=== PATIENT | male | born 1970 | race Two or more races ===

== ENCOUNTER 2024-09-03 07:08 | Inpatient (IN) | payer OTHER ==
[~2024-09-03] VITALS: Ht 182.9 cm; Wt 97.5 kg
[2024-09-03] MEDS ORDERED: LIPITOR40 M1 PO (07:39)
[2024-09-03] MEDS ORDERED: ADCIRCA20 MG PO (07:40)
[2024-09-03] MEDS ORDERED: TESTIM5 GM TD (07:40)
--- NOTE | 2024-09-03 07:44 | NUR ---
SE RECIBE PTE ALERTA Y ORIENTADO X3. PTE REFIERE DOLOR ABDOMINAL HACE 12 BARILLAS. SE OBSERVA AREA ABDOMINAL RIGIDA AL PALPAR. SE MIDEN S/V Y SE UBICA.
[2024-09-03] MEDS ORDERED: FAMOTIDINE/PF 20 MG/2 ML VIAL ONE ×2 (08:42→19:31)
[2024-09-03] MEDS ORDERED: FAMOtidine 10 MG/ML (4ML VIAL) IV ONE (08:45)
[2024-09-03 09:16] LABS: HEMATOCRIT 48.9 % (39.0-48.0); HEMOGLOBIN 16.7 g/dL (13-16.00); MEAN CELL VOLUME 87.2 fL (80.0-100.00); MEAN CORPUSCULAR HEMOGLOBIN 29.7 pg (27.00-32.0); MEAN CORPUSCULAR HGB CONC 34.1 g/dl (32.0-36.0); PLATELET COUNT 202 K/uL (150-450); RED BLOOD COUNT 5.61 M/uL (4.00-6.00); RED CELL DISTRIBUTION WIDTH 13.7 % (11.5-14.5)
--- NOTE | 2024-09-03 09:24 | NUR ---
PACIENTE ALERTA Y ORIENTADO X3, ES ORIENTADO SOBRE TRATAMIENTO MEDICO. VERBALIZA ENTENDER Y ACEPTAR. PACIENTE SE REALIZARON EXTRACCION DE MUESTRAS BAJO MEDIDAS ASEPTICAS. SE REALIZA PUNCION CON HERAPIN LOCK. PACIENTE PENDIENTE A CT CON CONTRASTE,NOTIFICADO AL PERSONAL DE TURNO.
[2024-09-03 10:01] LABS: BILIRUBIN TOTAL 1.19 mg/dL (0.3-1.2); CALCIUM 9.5 mg/dL (8.5-10.1); CREATININE SERUM 1.3 mg/dL (0.70-1.30); GFR 57.1; GLOBULINA 4.2 G/DL (2.4-3.5); POTASSIUM 4.03 mEq/L (3.5-5.1); TOTAL PROTEIN 8.2 gm/dL (6.4-8.2)
--- NOTE | 2024-09-03 15:21 | NUR ---
PTE ALERTA Y ORIENTADA X 3 ESFERAS SIN FAMILIAR AL MOMENTO DE LA RIRI.EN JASON CON BARANDAS ELEVADAS.AREA DE VENOPUNCION PATENTE Y HAO DE EDEMA.PENDIENTE A EVALUACION DE DR BERGER.
[2024-09-03] MEDS ORDERED: ACETAMINOPHEN 500 MG GEL..CAP PO PRN (19:00)
[2024-09-03] MEDS ORDERED: 0.9 % SODIUM CHLORIDE 1,000 ML IV SCH (19:00)
[2024-09-03] MEDS ORDERED: ONDANSETRON HCL 4 MG in 0.9 % SODIUM CHLORIDE 50 ML IV PRN (19:00)
[2024-09-03] MEDS ORDERED: PIPERACILLIN/TAZOBACTAM SODIUM 3.375 GM in DEXTROSE 5 % IN WATER 100 ML IV SCH (19:00)
[2024-09-03] MEDS ORDERED: MORPHINE SULFATE 2 MG/ML CARTRIDGE IV PRN (19:15)
[2024-09-03] MEDS ORDERED: KETOROLAC TROMETHAMINE 15 MG VIAL IU ONE (19:15)
[2024-09-03] MEDS ORDERED: KETOROLAC TROMETHAMINE 30 MG VIAL ONE (19:30)
[2024-09-03] MEDS ORDERED: PIPERACILLIN/TAZOBACTAM SODIUM 3.375 GM VIAL IV ONE (19:30)
[2024-09-03 20:24] VITALS: BP 165/90
[2024-09-03 20:31] LABS: INR 1.05; PARTIAL THROMBOPLASTIN TIME 29.9 SECONDS (22.0-34.0); PROTHROMBIN TIME 11.4 SECONDS (9.0-11.5)
[2024-09-03] MEDS ORDERED: FAMOTIDINE/PF 20 MG in 0.9 % SODIUM CHLORIDE 8 ML IV PUSH SCH (21:00)
[2024-09-04 00:51] VITALS: BP 104/56
[2024-09-04 09:00] VITALS: BP 98/52; O2SAT 98
[2024-09-04] MEDS ORDERED: ENOXAPARIN SODIUM 40 MG/0.4 ML SYRINGE SUBCUTANEO SCH (09:00)
[2024-09-04] MEDS ORDERED: FAMOTIDINE/PF 20 MG/2 ML VIAL ONE (10:39)
[2024-09-04] MEDS ORDERED: PIPERACILLIN/TAZOBACTAM SODIUM 3.375 GM VIAL IV ONE (10:40)
[2024-09-04 18:05] VITALS: BP 112/63
[2024-09-05 01:34] VITALS: BP 120/72
[2024-09-05 09:21] VITALS: BP 133/63
== END 2024-09-05 12:08 | disposition home or self-care (01) | DRG 446 ==
LOC: ER 07:11 → MEDJ 19:50
PROVIDERS: General Practice; Preventive Medicine Public Health & General Preventive Medicine; ADMIT Internal Medicine; ATTEND Internal Medicine
PROC: BW21ZZZ Computerized Tomography (CT Scan) of Abdomen and Pelvis (ICD-10-PCS; principal; 2024-09-03)
PROC: BW40ZZZ Ultrasonography of Abdomen (ICD-10-PCS; 2024-09-03)
DX: K80.00 Calculus of gallbladder with acute cholecystitis without obstruction (principal); E78.5 Hyperlipidemia, unspecified

== ENCOUNTER 2025-01-28 04:57 | Day surgery (SDC) | payer OTHER ==
[2025-01-25 09:30] LABS: URINE APPEARANCE Clear; URINE BILIRRUBIN Negative (NEGATIVE); URINE BLOOD Negative; URINE COLOR Yellow; URINE GLUCOSE Negative (NEGATIVE); URINE KETONE Negative (NEGATIVE); URINE LEUKOCYTE Negative; URINE NITRATE Negative; URINE PROTEIN Negative (NEGATIVE); URINE UROBILINOGEN 0.2 E.U./dl
[2025-01-25 09:33] LABS: BASO % 0.9 % (0.1-1.2); EOS # 0.15 (0.04-0.54); EOS % 2.7 % (0.7-7.0); LYMPH # 2.15 (1.18-3.74); LYMPH % 38.7 % (19.3-53.1); MEAN PLATELET VOLUME 10.60 fl (9.4-12.4); MONO # 0.49 (0.24-0.82); MONO % 8.8 % (4.7-12.5); NEUT # 2.71 (1.56-6.13); NEUT % 48.7 % (34.0-71.1); RED CELL DISTRIBUTION WIDTH 12.4 % (11.6-14.4)
[2025-01-25 09:51] LABS: INR 1.03
[2025-01-25 09:57] VITALS: BP 145/88
[2025-01-25 09:58] LABS: URINE BACTERIA 3.5 uL (0.0-1933); URINE CAST 0.00 uL (0.0-1.40); URINE EPITHELIAL CELLS 0.4 uL (0.0-38.8); URINE RBC 0.4 uL (0.0-20.8); URINE WBC 0.4 uL (0.0-23.2)
[2025-01-25 10:56] LABS: ALT/SGPT 45.0 U/L (12-78); AST/SGOT 20.0 U/L (15-37); BILIRUBIN TOTAL 0.96 mg/dL (0.3-1.2); BUN CREA RATIO 14.0 (7.0-25.0); CREATININE SERUM 1.13 mg/dL (0.70-1.30); GFR 67.13; GLOBULINA 3.6 G/DL (2.4-3.5); GLUCOSE FASTING 84.0 mg/dL (65-100); OSMOLALITY SERUM 283.0 MOSM/KG (275-295)
[~2025-01-28] VITALS: Ht 182.9 cm; Wt 93.0 kg
[~2025-01-28 04:57] MED LIST: ADCIRCA20 MG PO; LIPITOR40 M1 PO; TESTIM5 GM; TESTIM5 GM TD
[2025-01-28] MEDS ORDERED: BUPIVACAINE HCL 30 ML VIAL IJ ONE (08:45)
[2025-01-28] MEDS ORDERED: CEFAZOLIN SODIUM 1,000 MG VIAL IV ONE (08:45)
[2025-01-28] MEDS ORDERED: MORPHINE SULFATE 4 MG/ML VIAL IV ONE ×2 (09:40→10:25)
[2025-01-28] MEDS ORDERED: ONDANSETRON HCL 2 MG/ML VIAL IV ONE (10:20)
== END 2025-01-28 13:50 | disposition home or self-care (01) ==
LOC: CIR.AMB 04:57
PROVIDERS: ATTEND Student in an Organized Health Care Education/Training Program
DX: K80.20 Calculus of gallbladder without cholecystitis without obstruction (principal)
CPT/HCPCS: 47563; S2900